=== PATIENT | female | born 1980 | race Asian ===

== ENCOUNTER → 2018-06-03 | Outpatient (CLI) | payer BC | LOC: FIMAGING 07:29 | PROVIDERS: ATTEND Obstetrics & Gynecology | DX: R10.2 Pelvic and perineal pain (principal); Z87.42 Personal history of other diseases of the female genital tract; Z98.890 Other specified postprocedural states ==

== ENCOUNTER 2019-05-24 22:54 | Emergency (ER) | payer BC | END 2019-05-24 23:59 | disposition home or self-care (01) ==